=== PATIENT | female | born 1965 | race Caucasian/White ===

== ENCOUNTER 2016-11-22 10:11 | Emergency (ER) | payer OTHER ==
[~2016-11-22] VITALS: Ht 162.6 cm; Wt 91.0 kg
[2016-11-22 10:17] VITALS: BP 127/90
== END 2016-11-22 15:20 | disposition left against medical advice (07) ==
LOC: ER 10:37
DX: Z53.21 Procedure and treatment not carried out due to patient leaving prior to being seen by health care provider (principal)